=== PATIENT | female | born 1975 | race Two or more races ===

== ENCOUNTER 2017-01-18 03:43 | Emergency (ER) | payer MEDICAID ==
[~2017-01-18] VITALS: Ht 167.6 cm; Wt 87.5 kg
[2017-01-18] MEDS ORDERED: ONDANSETRON HCL 4 MG/2 ML VIAL IV ONE (03:45)
[2017-01-18] MEDS ORDERED: SODIUM CHLORIDE 0.9% 1,000 ML IV ONE ×2 (03:45→04:45)
[2017-01-18] MEDS ORDERED: HYDROmorphone HCL 2 MG/ML VL IV ONE ×2 (03:45→04:15)
[2017-01-18 04:13] LABS: CONDITION Y; Hematocrit 32.2 % (36.0-46.0); Hemoglobin 11.2 g/dL (12.2-16.2); Mean Corpuscular Hemoglobin 32.4 pg (28.0-32.0); Mean Corpuscular Hgb Conc. 34.7 g/dL (32.0-36.0); Mean Corpuscular Volume 93.2 fL (80.0-100.0); Mean Platelet Volume 6.2 fL (7.4-10.4); Platelet Count (auto) 345 10^3/uL (140-450); Red Cell Distribution Width 13.8 % (11.6-16.0); SUSPECT SEE PRINTOUT; White Blood Cell 7.2 10^3/uL (4.4-10.8)
[2017-01-18] MEDS ORDERED: CARISOPRODOL 350 MG TAB PO ONE (04:15)
[2017-01-18 04:33] LABS: Metamyelocytes % 0; Myelocytes % 0; Promyelocytes % 0; Reactive Lymphocytes 0
[2017-01-18 04:39] LABS: Albumin 2.7 g/dL (3.4-5.0); Calcium 8.2 mg/dL (8.5-10.1); Potassium 3.5 mmol/L (3.5-5.1)
[2017-01-18 04:41] LABS: BUN/Creatinine Ratio 10.5
[2017-01-18 04:43] LABS: Bilirubin, Total 0.7 mg/dL (0.2-1.0); Total Protein 6.5 g/dL (6.4-8.2)
[2017-01-18 05:09] LABS: Platelet Estimate Adequate; RBC Morphology Normal
[2017-01-18] MEDS ORDERED: FOLI1TAB6 (06:04)
[2017-01-18] MEDS ORDERED: PREN-160 (06:04)
[2017-01-18 06:22] VITALS: BP 98/56
[2017-01-18] MEDS ORDERED: METHYLERGONOVINE MALEATE 0.2 MG/ML AMP IM ONE (06:30)
== END 2017-01-18 11:47 | disposition home or self-care (01) ==
LOC: ER 03:43
DX: O03.9 Complete or unspecified spontaneous abortion without complication (principal); Z3A.22 22 weeks gestation of pregnancy
CPT/HCPCS: 36415; 76805; 80053; 85007; 85027; 94761; 96361; 96372; 96374; 96375; 96376; 99285; J1170; J2210; J2405